=== PATIENT | male | born 1995 | race African-American/Black ===

== ENCOUNTER 2017-07-16 18:08 | Emergency (ER) | payer SELFPAY ==
[~2017-07-16] VITALS: Ht 177.8 cm; Wt 75.0 kg
[~2017-07-16 18:08] MED LIST: NAPROSYN500 MG PO; NO HOME MEDS
[2017-07-16] MEDS ORDERED: BACTRIM DS1 TAB PO (18:37)
[2017-07-16] MEDS ORDERED: CEPHALEXIN500 MG PO (18:37)
[2017-07-16] MEDS ORDERED: BENADRYL 50MG C50 MG PO (18:37)
[2017-07-16 18:45] VITALS: BP 118/68
== END 2017-07-16 18:45 | disposition home or self-care (01) | DRG 125 ==
LOC: ED 18:08
DX: S00.261A Insect bite (nonvenomous) of right eyelid and periocular area, initial encounter (principal); H00.031 Abscess of right upper eyelid; W57.XXXA Bitten or stung by nonvenomous insect and other nonvenomous arthropods, initial encounter